=== PATIENT | female | born 1965 | race African-American/Black ===

== ENCOUNTER 2018-10-29 09:35 | Inpatient (IN) | payer SELFPAY ==
[~2018-10-29] VITALS: Ht 170.2 cm; Wt 79.8 kg
[2018-10-29 09:45] VITALS: BP 151/94
--- NOTE | 2018-10-29 09:46 | NUR ---
Patient transferred to bed 2 via wheelchair. RN evaluating patient at bedside.
--- NOTE | 2018-10-29 10:13 | NUR ---
PT C/O OF COSTANT RUQ ABDOMINAL PAIN, 7/10 FOR ONE MONTH. BEING SEEN IN [facility] FOR THE SAME SX ON September, PRESCRIBED WITH META MUCIL, HYDROCODONE, TRAMADOL, OMEPRAZOLE, AND METOCLOPRAMIDE W/O ANY RELIEF. PT ALSO STATES OF HAVING NAUSEA AND CONSTIPATION. DENIES VOMITING. LBM WAS IN THE MORNING OF TODAY. VSS; PATIENT POSITIONED FOR COMFORT; HOB ELEVATED; BEDRAILS UP X1; BED DOWN. ER MD MADE AWARE OF PT STATUS.
--- NOTE | 2018-10-29 10:16 | NUR ---
Dr. Jacques evaluating patient at bedside.
[2018-10-29] MEDS ORDERED: NACL 0.9% 1,000 ML IV SCH (10:35)
[2018-10-29] MEDS ORDERED: KETOROLAC 30 MG/ML VIAL IVP ONE (10:35)
[2018-10-29] MEDS ORDERED: ONDANSETRON 4 MG/2 ML VIAL IVP ONE (10:35)
--- NOTE | 2018-10-29 11:23 | NUR ---
US tech at bedside for exam.
--- NOTE | 2018-10-29 12:02 | NUR ---
PT STATES OF STILL HAVING ABDOMINAL PAIN AND NAUSEA. DR. ROLAND NOTIFIED.
[2018-10-29 12:46] LABS: APPEARANCE,URINE CLEAR (CLEAR); BASOPHILS % (AUTO) 0.2 % (0.0-2.0); BILIRUBIN,URINE 1+ (NEGATIVE); BLOOD, URINE NEGATIVE (NEGATIVE); COLOR,URINE YELLOW (YELLOW); HEMATOCRIT 45.2 % (36-48); HEMOGLOBIN 14.8 g/dL (12.0-16.0); LEUKOCYTE ESTERASE ,URINE NEGATIVE (NEGATIVE); LYMPHOCYTES # (AUTO) 0.5 K/uL (2.5-16.5); MEAN CORPUSCULAR HEMOGLOBIN 29 pg (27-31); MEAN CORPUSCULAR HGB CONC 33 g/dL (33-37); MEAN CORPUSCULAR VOLUME 88.7 fL (80-94); MONOCYTES # (AUTO) 0.2 K/uL (0.8-1.0); MONOCYTES % (AUTO) 2.1 % (1.7-9.3); NEUTROPHILS # (AUTO) 9.1 K/uL (1.8-7.7); NITRITE, URINE NEGATIVE (NEGATIVE); PLATELET COUNT (AUTO) 133 K/uL (140-450); RED CELL DISTRIBUTION WIDTH 13.1 % (11.6-13.7); UGLUCOSE TRACE (NEGATIVE); WHITE BLOOD COUNT (AUTO) 9.9 K/uL (4.8-10.8)
[2018-10-29] MEDS ORDERED: MORPHINE SULFATE 4 MG/ML SYR IVP ONE (12:50)
[2018-10-29] MEDS ORDERED: PROMETHAZINE 25 MG/ML VIAL IVP ONE (12:50)
[2018-10-29 12:52] LABS: RBC,URINE NONE SEEN /HPF (0-5); WBC,URINE 0-5 /HPF (0-5)
--- NOTE | 2018-10-29 13:02 | NUR ---
PT IS RESTING IN BED WITH EYES CLOSED. VSS.
[2018-10-29 13:03] LABS: ANION GAP 13.9 (8-16); CARBON DIOXIDE 26.3 mmol/L (21-32); CREATININE 0.8 mg/dL (0.6-1.3); POTASSIUM 4.2 mmol/L (3.5-5.1)
[2018-10-29 13:04] LABS: ALBUMIN 3.9 g/dL (3.4-5.0); TOTAL BILIRUBIN 0.6 mg/dL (0.0-1.0)
[2018-10-29 13:14] LABS: LYMPHOCYTES % (AUTO) 5.3 % (20.5-51.1); NEUTROPHILS % (AUTO) 92.4 % (42.2-75.2)
[2018-10-29] MEDS ORDERED: ACETAMINOPHEN 325 MG TAB PO PRN (14:05)
--- NOTE | 2018-10-29 14:10 | NUR ---
[facility] IS AT BEDSIDE AND TAKING PT TO [facility] FOR CT SCAN. REPORT GIVEN TO [facility] AND NOTIFIED THEM THAT PT IS ALLERGIC TO IODINE; PT IS GOING TO DO CT SCAN W/ ORAL CONTRAST.
--- NOTE | 2018-10-29 14:19 | NUR ---
Patient taken to [facility] ED for CT scan.
--- NOTE | 2018-10-29 16:17 | NUR ---
Patient returned from [facility], transferred to bed 2. RN re-evaluating patient at bedside.
--- NOTE | 2018-10-29 16:20 | NUR ---
PATIENT STATES PAIN OF 6/10 AT THIS TIME; VSS; PATIENT POSITIONED FOR COMFORT; HOB ELEVATED; BEDRAILS UP X2; BED DOWN. ER MD MADE AWARE OF PT STATUS.
[2018-10-29] MEDS ORDERED: TRAM50TA1 PO (16:36)
[2018-10-29] MEDS ORDERED: METO-485 PO (16:36)
[2018-10-29] MEDS ORDERED: OMEP20TC12 PO (16:36)
[2018-10-29] MEDS ORDERED: HYDR-5122 PO (16:36)
[2018-10-29 16:48] LABS: PROTHROMBIN TIME 9.5 secs (10.8-13.4)
[2018-10-29 16:56] LABS: BARBITURATE, URINE NEG. ng/ml (NEG <=200); BENZODIAZEPINE, URINE NEG. ng/mL (NEG <=200); CANNABINOID, URINE NEG. ng/mL (NEG <=50); COCAINE, URINE NEG. ng/mL (NEG <=300); OPIATE, URINE NEG. ng/mL (NEG <=2000); PHENCYCLIDINE SCREEN,URINE NEG. ng/mL (NEG <=25)
[2018-10-29 17:08] LABS: MAGNESIUM 1.8 mg/dL (1.8-2.4); PHOSPHORUS 3.5 mg/dL (2.5-4.9); THYROID STIMULATING HORMONE 0.65 uIU/mL (0.34-3.74)
[2018-10-29 17:20] VITALS: BP 149/76
--- NOTE | 2018-10-29 17:20 | NUR ---
Patient will be admitted to care of ABDOMINAL PAIN, NAUSEA, AND VOMITING. Admited to MED/SURG. Will go to room 106B. Belongings list completed. Report to NICOL Wilkerson.
--- NOTE | 2018-10-29 17:20 | NUR ---
PATIENT ARRIVED ON MST UNIT VIA WHEELCHAIR. NO DISTRESS NOTED. ABD PAIN WITHIN TOLERABLE AT THIS TIME. AAOX4, CALM, COOPERATIVE, SKIN COLOR APPROPRIATE TO ETHNICITY, WARM TO TOUCH. SKIN INTACT. IV SITE INTACT, PATENT, ON SALINE LOCK. ABDOMEN SOFT. RESPIRATIONS EVEN, UNLABORED, ON ROOM AIR. ORIENTED PATIENT TO ROOM AND CALL LIGHT. REVIEWED PLAN OF CARE WITH PATIENT. PATIENT VERBALIZED UNDERSTANDING. SAFETY MEASURES IN PLACE, CALL LIGHT WITHIN REACH. WILL CONTINUE TO MONITOR.
[2018-10-29] MEDS: ONDANSETRON 4 MG/2 ML VIAL IM/IVP PRN (18:22)
[2018-10-29] MEDS: MORPHINE SULFATE 2 MG/ML SYR IVP PRN (18:23)
--- NOTE | 2018-10-29 18:30 | NUR ---
PATIENT COMPLAINS OF GENERALIZED ABD PAIN. MORPHINE GIVEN. ALSO COMPLAINS OF NAUSEA. ZOFRAN GIVEN PER MD ORDERS. WILL CONTINUE TO MONITOR.
[2018-10-29] MEDS: NACL 0.9% 1,000 ML IV SCH (18:31)
--- NOTE | 2018-10-29 19:30 | NUR ---
GAVE REPORT TO COFFEE SHOP MANAGER NURSE FOR CONTINUITY OF CARE. PATIENT IN STABLE CONDITION.
--- NOTE | 2018-10-29 19:30 | NUR ---
RECEIVED REPORT FROM KAYLEEN CAMARNEA DAYSHIFT NURSE AT BEDSIDE FOR CONTINUITY OF CARE, PT IN STABLE CONDITION.
[2018-10-29] MEDS ORDERED: MULTIVITAMIN-12 10 ML, THIAMINE 100 MG, MAGNESIUM SULFATE 50% 2,000 MG, FOLIC ACID 1 MG... IV ONE ×5 (19:37)
[2018-10-29] MEDS ORDERED: LORazepam 2 MG/ML VIAL IM/IVP PRN (19:40)
[2018-10-29] MEDS ORDERED: DEXTROSE 50% 50 ML SYR IVP PRN (19:40)
[2018-10-29] MEDS ORDERED: INSULIN LISPRO SLIDING SCALE 100 UNITS/ML VIAL SUBQ PRN (19:40)
[2018-10-29 20:00] VITALS: BP 152/91
--- NOTE | 2018-10-29 20:00 | NUR ---
PT SITTING UP IN BED APPEARS ANXIOUS AND HAS C/O OF 5/10 ABDOMINAL PAIN. V/S FOLLOWS T 98.5 P 78 R 18 B/P 152/91 02 96% ON ROOM AIR. WILL MEDICATE FOR PAIN AND ANXIETY.
[2018-10-29] MEDS ORDERED: DICYCLOMINE HCL LIQUID 10 MG/5 ML UDC PO SCH (20:15)
[2018-10-29] MEDS ORDERED: ALUMINUM HYD/MAG/SIMETHICONE 30 ML UDC PO SCH (20:15)
[2018-10-29] MEDS ORDERED: LIDOCAINE VISCOUS 2% 20 ML UDC PO SCH (20:15)
[2018-10-29] MEDS: HYDROcodone/APAP 5/325 MG 1 TAB TAB PO PRN (20:20)
[2018-10-29] MEDS: LORazepam 2 MG/ML VIAL IM/IVP PRN (20:21)
[2018-10-29] MEDS ORDERED: PANTOPRAZOLE 40 MG INJ VIAL IVP SCH (20:30)
--- NOTE | 2018-10-29 20:30 | NUR ---
PT GIVEN PO/PRN NORCO FOR MODERATE PAIN WELL IVP ATIVAN 1MG FOR ANXIETY. IV SITE 20 GUAGE INTACT AND FLUSHED PATENT, PT CONTINUES ON NS AT 60MLS/HR. WILL MONITOR FOR EFFECT OF PRN MEDICATIONS.
[2018-10-29] MEDS: NICOTINE TRANSD SYS 21 MG/24 HR PATCH TD SCH (20:44)
[2018-10-29] MEDS: chlordiazePOXIDE 25 MG CAP PO SCH (20:54)
[2018-10-29] MEDS: BLOOD GLUCOSE MONITORING 1 DEV DEV FS SCH (21:00)
--- NOTE | 2018-10-29 21:30 | NUR ---
PT SEEMED MORE RELAXED AND RELIEF FELT FORM NORCO. ORDERED GI COCKTAIL, PROTONIX 40MG IVP WELL LIBRIUM AND NICOTINE PATCH. MEDICATION EDUCATION PROVIDED, PT SPILLED SOME OF THE GI COCKTAIL. MD LAUREN MADE AWARE. PT IS ALSO ON SEIZURE PRECAUTIONS WHICH ARE IN PLACE. WILL CONTINUE TO MONITOR PT FOR RELIEF OF GI SYMPTOMS.
--- NOTE | 2018-10-29 22:30 | NUR ---
PT SLEEPING SOUNDLY IN LOW BED WITH SIDE RAILS UP X2 AND RICHARD PARDO IN REACH. SEIZURE PRECAUTIONS IN PLACE AND IV SITE ON LEFT AC INTACT AND RUNNING NS AT 60MLS/HR.
[2018-10-30] VITALS: BP 101/64
--- NOTE | 2018-10-30 | NUR ---
PT IN BED SLEEPING SOUNDLY NO S/S OF PAIN OR DISTRESS NOTED. V/S FOLLOWS T 98.0 P 80 R 18 B/P 101/64 02 95% ON ROOM AIR. V/S FOLLOWS T 98.0 P 80 R 18 B/P 101/64 02 95% ON ROOM AIR. BED LOW AND IV INTACT AND RUNNING N/S AT 60MLS/HR.
--- NOTE | 2018-10-30 03:00 | NUR ---
PT IN BED ASLEEP IN LOW BED IV SITE RUNNING N/S ORDERED, NO S/S OF PAIN OR DISTRESS NOTED. BED LOW SIDE RAILS UP X2 AND CALL PARDO IN REACH.
[2018-10-30 05:43] LABS: BASOPHILS % (AUTO) 0.5 % (0.0-2.0); EOSINOPHILS # (AUTO) 0.1 K/uL (0-0.4); EOSINOPHILS % (AUTO) 0.7 % (0.0-4.0); HEMATOCRIT 40.6 % (36-48); HEMOGLOBIN 13.2 g/dL (12.0-16.0); LYMPHOCYTES # (AUTO) 1.6 K/uL (2.5-16.5); LYMPHOCYTES % (AUTO) 18.8 % (20.5-51.1); MEAN CORPUSCULAR HEMOGLOBIN 29 pg (27-31); MEAN CORPUSCULAR HGB CONC 33 g/dL (33-37); MEAN CORPUSCULAR VOLUME 88.8 fL (80-94); MONOCYTES # (AUTO) 0.6 K/uL (0.8-1.0); MONOCYTES % (AUTO) 6.8 % (1.7-9.3); NEUTROPHILS # (AUTO) 6.1 K/uL (1.8-7.7); NEUTROPHILS % (AUTO) 73.2 % (42.2-75.2); PLATELET COUNT (AUTO) 107 K/uL (140-450); RED BLOOD CELL COUNT(AUTO) 4.57 MIL/uL (4.20-5.40); RED CELL DISTRIBUTION WIDTH 13.1 % (11.6-13.7); WHITE BLOOD COUNT (AUTO) 8.4 K/uL (4.8-10.8)
[2018-10-30] MEDS: NACL 0.9% 1,000 ML IV SCH ×2 (05:55→23:25)
[2018-10-30 05:59] LABS: ANION GAP 9.7 (8-16); CARBON DIOXIDE 27.7 mmol/L (21-32); CREATININE 0.8 mg/dL (0.6-1.3); POTASSIUM 3.4 mmol/L (3.5-5.1)
--- NOTE | 2018-10-30 06:00 | NUR ---
PT IN BED AWAKE, NO S/S OF PAIN OR DISTRESS NOTED. PT STAND BY ASSISTANCE TO TOILET AND BACK TO BED, LAST FINGERSTICK IS 123. NO HUMALOG COVERAGE GIVEN. WILL ENDORSE CARE TO AM SHIFT.
[2018-10-30] MEDS: BLOOD GLUCOSE MONITORING 1 DEV DEV FS SCH ×4 (06:07→21:26)
[2018-10-30 06:08] LABS: CHOL/HDL RATIO 3.5 (1-4.5); MAGNESIUM 1.9 mg/dL (1.8-2.4); PHOSPHORUS 3.3 mg/dL (2.5-4.9)
--- NOTE | 2018-10-30 07:15 | NUR ---
RECEIVED BED SIDE REPORT FROM LICENSED SOCIAL WORKER RN DARYL. PT CURRENTLY SLEEPING, APPEARS IN NO DISTRESS. LEFT AC 20G RUNNING NS AT 60CC/HR. NO CURRENT CONSULTS ON PT'S CASE. SKIN INTACT. ON RA IN NO RESP DISTRESS.
--- NOTE | 2018-10-30 07:18 | NUR ---
POC ENDORSED AT BEDSIDE TO FRANCISCO AYALA RN, PT IN STABLE CONDITION.
--- NOTE | 2018-10-30 07:47 | NUR ---
VS STABLE. PT A/O X4 BUT PT STATES SHE FEELS WEAK AFTER GI COCKTAIL GIVEN BY PRODUCTION MATERIAL COORDINATOR RN DARYL. EDUCATED PT ON THE IMPORTANCE OF USING CALL LIGHT WHEN SHE NEEDS TO GET UP. PT VERBALIZED UNDERSTANDING. WILL CONTINUE TO MONITOR.
--- NOTE | 2018-10-30 08:11 | NUR ---
PATIENT HAS BEEN SCREENED AND CATEGORIZED MODERATE NUTRITION RISK. PATIENT WILL BE SEEN WITHIN 3-5 DAYS OF ADMISSION. 10/31/18-11/02/[address]
[2018-10-30] MEDS: chlordiazePOXIDE 25 MG CAP PO SCH ×3 (08:16→17:00)
[2018-10-30] MEDS: MULTIVITAMIN 1 TAB PO SCH (08:17)
[2018-10-30] MEDS: FOLIC ACID 1 MG TAB PO SCH (08:17)
[2018-10-30] MEDS: PANTOPRAZOLE 40 MG INJ VIAL IVP SCH (08:17)
[2018-10-30 09:35] VITALS: BP 123/82
--- NOTE | 2018-10-30 09:44 | NUR ---
GASTRIC RESIDUAL 5CC. HEARD SWOOSH. PT TOLERATING G TUBE FEEDING WELL. GAVE AM MEDS. HOB ELEVATED 30 DEGREES. PT CLEANED AND REPOSITIONED. APPLIED HYDROGUARD TO KAE AREA. BLANCHABLE REDNESS NOTED IN BILAT INNER THIGHS, NO OPEN WOUNDS. ALSO APPLIED TO SACRAL AREA.
--- NOTE | 2018-10-30 10:35 | NUR ---
RECEIVED A CALL FROM PHARMACY ABOUT BANANA BAG NOT BEING ADMINISTERED DUE LATE ORDER PLACED AND PHARMACY BEING CLOSED DUE TO IT BEING THE WEEKEND. ALSO THE BANANA BAG ORDER HAD NO RATE. NOTIFIED AND SHE SAID SHE WILL FIX THE ORDER. WILL WAIT FOR NEW ORDER.
--- NOTE | 2018-10-30 11:03 | NUR ---
PT REQUESTED TO HAVE HER IV CHANGED TO A DIFFERENT SITE. STARTED NEW IV ON LEFT HAND 20G, CURRENTLY RUNNING NS AT 60CC/HR. PT STILL DROWSY BUT AROUSABLE. A/O X4, RR 20, BED ALARM ON, AT BEDSIDE AND NOTIFIED HIM TO LET ME KNOW FOR HELP IN AMBULATING PT TO RESTROOM. CALL LIGHT WITHIN REACH.
--- NOTE | 2018-10-30 11:47 | NUR ---
SAW THAT LIBRIUM 50MG AND LIBRIUM 25MG ARE DUE AT 1300. CALLED TO CLARIFY IF SHE STILL WANTED ME TO GIVE BOTH MEDS. SHE STATED TO HOLD LIBRIUM 50MG AND DECIDE IF PT IS STILL DROWSY THEN TO HOLD THE 25MG DOSE. PT STILL DROWSY. WILL HOLD 25MG DOSE. GAVE 50MG IN AM.
[2018-10-30] MEDS: MULTIVITAMIN-12 10 ML, THIAMINE 100 MG, MAGNESIUM SULFATE 50% 2,000 MG, FOLIC ACID 1 MG... IV SCH ×10 (11:57→22:10)
[2018-10-30] MEDS: MORPHINE SULFATE 2 MG/ML SYR IVP PRN ×2 (13:18→17:59)
[2018-10-30] MEDS: ONDANSETRON 4 MG/2 ML VIAL IM/IVP PRN (13:19)
--- NOTE | 2018-10-30 13:27 | NUR ---
PT STATED SHE FEELS LIKE ASPIRATED ON FOOD. PT NOT SOB AND TALKING FINE. NOTIFIED IF CXR CAN BE ORDERED. ORDER PLACED. PT STATES SHE FEELS NAUSEOUS AND HAS 6/10 DULL ABDOMINAL PAIN. GAVE MORPHINE AND ZOFRAN PER MD ORDER.
[2018-10-30] MEDS ORDERED: METOCLOPRAMIDE 10 MG/2 ML INJ VIAL IVP PRN (14:30)
[2018-10-30] MEDS: HYDROcodone/APAP 5/325 MG 1 TAB TAB PO PRN (14:40)
--- NOTE | 2018-10-30 14:43 | NUR ---
PT STATES SHE STILL FEELS NAUSEOUS. NOTIFIED AND SHE ORDERED REGLAN. PT STILL COMPLAINS OF 7/10 ABDOMINAL PAIN, GAVE NORCO PER MD ORDER. WILL CONTINUE TO MONITOR.
--- NOTE | 2018-10-30 15:32 | NUR ---
PT STILL COMPLAINS OF NAUSEA AFTER GIVING REGLAN. PT STATES HER PAIN HAS REDUCED A LITTLE AFTER ADMINISTERING NORCO. WILL CONTINUE TO MONITOR.
[2018-10-30] MEDS ORDERED: POTASSIUM CHLORIDE 10 MEQ TABER PO SCH (16:00)
--- NOTE | 2018-10-30 16:39 | NUR ---
PT STATES SHE HAS 2/10 PAIN AND FEELS NAUSEOUS WHEN SHE IS WOKEN UP. PT STABLE.
[2018-10-30 16:41] VITALS: BP 147/83
[2018-10-30] MEDS ORDERED: ALBUTEROL SULFATE/IPRATROPIU 3 ML SOL IH PRN (16:55)
--- NOTE | 2018-10-30 17:09 | NUR ---
CALLED HOSPICE CARE SALES CONSULTANT PHARMACY TO VERIFY MEDICATIONS INCLUDING POTASSIUM CHLORIDE, HEPARIN, LIPITOR, LISINOPRIL AND METFORMIN. CALLED 4 TIMES AND LEFT A MESSAGE. PT COMPALINED OF CHEST PAIN AND TROUBLE BREATHING. NOTIFIED AND SHE ORDERED EKG AND BREATHING TX. PT STABLE, BANANA BAG STILL RUNNING, VS STABLE.
[2018-10-30] MEDS ORDERED: metFORMIN 500 MG TAB PO SCH (18:00)
[2018-10-30] MEDS ORDERED: ATORVASTATIN 20 MG TAB PO SCH (18:00)
[2018-10-30] MEDS ORDERED: LISINOPRIL 5 MG TAB PO SCH (18:00)
--- NOTE | 2018-10-30 18:22 | NUR ---
GAVE ZOFRAN AND MORPHINE PER MD ORDER. IS ORDERED. EDUCATED PT AND WHO IS BEDSIDE HOW TO USE IS. PT DID RETURN DEMONSTRATION AND HIT 500ML LEVEL. HELD LIBRIUM DUE TO PT STILL BEING DROWSY. NOTIFIED [employer]ACLE DISTRIBUTION CONSULTANT [employer].
[2018-10-30] MEDS: ALBUTEROL SULFATE/IPRATROPIU 3 ML SOL IH SCH (19:08)
--- NOTE | 2018-10-30 19:15 | NUR ---
ENDORSED PT TO HYDRAULIC JACK MECHANIC NICOL JONES. PT SLEEPING.
--- NOTE | 2018-10-30 19:16 | NUR ---
RECEIVED BEDSIDE REPORT FROM AM SHIFT RN HERMANN, FOR PT'S CONTINUITY OF CARE. PT IS LYING DOWN, APPEARS TO BE ASLEEP WITH NO SIGNS OF DISTRESS, FAMILY MEMBER AT BEDSIDE. PT IS ON ROOM AIR, HAS LEFT HAND 22G IV INFUSING WITH BANANA BAG. EXPLAINED TO FAMILY MEMBER THE RAIL LAYER ROUTINE, VERBALIZED UNDERSTANDING. BED IS ON LOW POSITION, SIDE RAILS ARE UP, AND CALL LIGHT WITHIN REACH. WILL MONITOR PT THROUGHOUT SHIFT.
[2018-10-30] MEDS: NICOTINE TRANSD SYS 21 MG/24 HR PATCH TD SCH (21:13)
[2018-10-30] MEDS: LORazepam 2 MG/ML VIAL IM/IVP PRN (21:14)
--- NOTE | 2018-10-30 21:15 | NUR ---
BLOOD GLUCOSE CHECKED AND CHARTED. PT STATED ANXIETY INCREASING AND NAUSEA. ADMINISTERED SCHEDULED TRANSDERMAL PATCH ORDERED, AND IV PUSH ANTI ANXIETY MEDICATION ORDERED. PT TOLERATED THEM WELL. HELD HEPARIN SUBQ PER MD, AWARE THAT PLT IS 107, APTT 24.9. PT AMBULATES. INSTRUCTED PT TO USE CALL LIGHT FOR HELP WITH AMBULATING TO THE BATHROOM. PT VERBALIZED UNDERSTANDING. WILL CONTINUE TO MONITOR PT.
--- NOTE | 2018-10-30 23:35 | NUR ---
VS CHECKED AND CHARTED. PT DENIES PAIN AT THIS TIME. STATES THAT SHE CANNOT SLEEP. MADE ENVIRONMENT COMFORTABLE, AND QUIET. WILL CONTINUE TO MONITOR PT.
[2018-10-31] VITALS: BP 148/80
[2018-10-31] MEDS: NACL 0.9% 1,000 ML IV SCH (00:55)
--- NOTE | 2018-10-31 01:00 | NUR ---
PATIENT COMPLAINED OF GENERALIZED BODY ACHE 5/10. PRN PAIN MED ADMINISTERED PER ORDER. WILL MONITOR FOR EFFECTIVENESS.
[2018-10-31] MEDS: HYDROcodone/APAP 5/325 MG 1 TAB TAB PO PRN (01:05)
--- NOTE | 2018-10-31 01:59 | NUR ---
CHECKED ON PATIENT. PATIENT SLEEPING RESPIRATION EVEN UNLABORED ON ROOM AIR. NO DISTRESS NOTED. WILL CONTINUE TO MONITOR.
[2018-10-31] MEDS: ALBUTEROL SULFATE/IPRATROPIU 3 ML SOL IH SCH (06:00)
[2018-10-31] MEDS: BLOOD GLUCOSE MONITORING 1 DEV DEV FS SCH (06:21)
--- NOTE | 2018-10-31 06:21 | NUR ---
BLOOD GLUCOSE CHECKED AND CHARTED. PT AWAKE, C/O INCREASE ANXIETY, AND NOT ABLE TO REST. PT DENIES PAIN AT THIS TIME.
[2018-10-31] MEDS ORDERED: LORazepam 2 MG/ML VIAL ONE (06:57)
--- NOTE | 2018-10-31 07:00 | NUR ---
PT LYING DOWN, APPEARS TO BE ASLEEP WITH NO SIGNS OF DISTRESS OR DISCOMFORT. IV PUSH ANTI ANXIETY MED NOT ADMIN. WILL ENDORSE TO AM SHIFT RN FOR CONTINUITY OF CARE.
--- NOTE | 2018-10-31 07:05 | NUR ---
RECEIVED ENDORSEMENT FROM SALES ADMINISTRATION SPECIALIST NURSE. PATIENT IS SLEEPING, AROUSABLE TO LIGHT SHAKING. PATIENT IS LETHARGIC, SAMI SPEAKING. RESPIRATIONS ARE EVEN AND UNLABORED ON ROOM AIR. NO COMPLAINS OF PAIN AT THIS TIME. LEFT HAND 22G IV INTACT, PATENT AND INFUSING IVF. PLAN OF CARE WAS REVIEWED WITH PATIENT, PATIENT REQUIRES REINFORCEMENT. SAFETY MEASURES IN PLACE, CALL LIGHT WITHIN REACH.
[2018-10-31 07:53] LABS: BASOPHILS % (AUTO) 0.2 % (0.0-2.0); EOSINOPHILS % (AUTO) 0.4 % (0.0-4.0); HEMATOCRIT 42.3 % (36-48); LYMPHOCYTES # (AUTO) 1.4 K/uL (2.5-16.5); LYMPHOCYTES % (AUTO) 13.9 % (20.5-51.1); MEAN CORPUSCULAR HEMOGLOBIN 30 pg (27-31); MEAN CORPUSCULAR HGB CONC 33 g/dL (33-37); MEAN CORPUSCULAR VOLUME 89.1 fL (80-94); MONOCYTES # (AUTO) 0.6 K/uL (0.8-1.0); MONOCYTES % (AUTO) 5.4 % (1.7-9.3); NEUTROPHILS # (AUTO) 8.3 K/uL (1.8-7.7); NEUTROPHILS % (AUTO) 80.1 % (42.2-75.2); PLATELET COUNT (AUTO) 121 K/uL (140-450); RED BLOOD CELL COUNT(AUTO) 4.74 MIL/uL (4.20-5.40); WHITE BLOOD COUNT (AUTO) 10.3 K/uL (4.8-10.8)
[2018-10-31 08:00] VITALS: BP 129/84
[2018-10-31] MEDS ORDERED: metFORMIN 500 MG TAB PO SCH (08:00)
[2018-10-31] MEDS ORDERED: ALBUTEROL SULFATE/IPRATROPIU 3 ML SOL IH SCH (08:10)
[2018-10-31] MEDS: MULTIVITAMIN-12 10 ML, THIAMINE 100 MG, MAGNESIUM SULFATE 50% 2,000 MG, FOLIC ACID 1 MG... IV SCH ×5 (08:20)
[2018-10-31] MEDS: FOLIC ACID 1 MG TAB PO SCH (08:56)
[2018-10-31] MEDS: PANTOPRAZOLE 40 MG INJ VIAL IVP SCH (08:56)
[2018-10-31] MEDS: MULTIVITAMIN 1 TAB PO SCH (08:57)
[2018-10-31] MEDS ORDERED: LISI-424 PO (08:57)
[2018-10-31] MEDS ORDERED: METF500T PO (08:57)
[2018-10-31] MEDS ORDERED: MULT-405 PO (08:57)
[2018-10-31] MEDS ORDERED: METO5SOL24 IVP (08:57)
[2018-10-31] MEDS ORDERED: ATOR20TA40 PO (08:57)
[2018-10-31] MEDS ORDERED: FOLI1TAB90 PO (08:57)
[2018-10-31] MEDS: chlordiazePOXIDE 25 MG CAP PO SCH (08:58)
[2018-10-31] MEDS ORDERED: MIRABULK PO (09:00)
[2018-10-31] MEDS ORDERED: DOCU-299 PO (09:00)
[2018-10-31] MEDS ORDERED: SENN-72 PO (09:00)
[2018-10-31] MEDS ORDERED: LISINOPRIL 5 MG TAB PO SCH (09:00)
[2018-10-31] MEDS ORDERED: ATORVASTATIN 20 MG TAB PO SCH (09:00)
--- NOTE | 2018-10-31 09:00 | NUR ---
HEPARIN NON ADMINISTERED DUE TO PLAT OF 121. HELD LIBRIUM DUE TO PATIENT LETHARGIC CONDITION. ADMINISTERED ALL OTHER SCHEDULED MEDICATIONS. PATIENT TOLERATED WELL, NO OTHER NEEDS AT THIS TIME. WILL CONTINUE TO MONITOR.
[2018-10-31] MEDS ORDERED: LIB25 PO ×2 (09:01)
[2018-10-31] MEDS ORDERED: GLUC-805 FS (09:30)
[2018-10-31 09:31] LABS: ANION GAP 13.5 (8-16); CARBON DIOXIDE 27.2 mmol/L (21-32); CREATININE 0.8 mg/dL (0.6-1.3); POTASSIUM 3.7 mmol/L (3.5-5.1)
[2018-10-31 09:32] LABS: MAGNESIUM 2.1 mg/dL (1.8-2.4)
--- NOTE | 2018-10-31 11:40 | NUR ---
PATIENT SLEEPING, VISIBLE RISE AND FALL OF CHEST. PRESENT AT BEDSIDE. NO OTHER NEEDS AT THIS TIME, WILL CONTINUE TO MONITOR.
--- NOTE | 2018-10-31 12:40 | NUR ---
DISCHARGE INSTRUCTIONS WERE GIVEN. ALL QUESTIONS AND CONCERNS ANSWERED. IV WAS REMOVED, CANNULA INTACT, WITH MINIMAL BLEEDING. ID BAND WAS REMOVED. PATIENT TO BE DISCHARGED HOME ACCOMPANIED BY .
--- NOTE | 2018-10-31 12:45 | NUR ---
PATIENT AMBULATED OFF UNIT WITH STEADY GAIT ACCOMPANIED BY . ALL BELONGINGS LEFT WITH PATIENT. PATIENT IS STABLE AT THIS TIME.
[2018-10-31] MEDS ORDERED: FAMO-90 PO (13:41)
== END 2018-10-31 12:40 | disposition home or self-care (01) | DRG 392 ==
LOC: MED 09:35 → MTU 14:09
PROVIDERS: ADMIT General Practice; ATTEND General Practice
DX: K21.9 Gastro-esophageal reflux disease without esophagitis (principal); E87.1 Hypo-osmolality and hyponatremia; J98.11 Atelectasis; Z88.5 Allergy status to narcotic agent; E11.9 Type 2 diabetes mellitus without complications; I25.2 Old myocardial infarction; Z83.3 Family history of diabetes mellitus; Z82.49 Family history of ischemic heart disease and other diseases of the circulatory system; F17.210 Nicotine dependence, cigarettes, uncomplicated; F10.10 Alcohol abuse, uncomplicated; Y90.9 Presence of alcohol in blood, level not specified; F19.10 Other psychoactive substance abuse, uncomplicated; E87.6 Hypokalemia; E78.5 Hyperlipidemia, unspecified
CPT/HCPCS: 36415; 36600; 71045; 74018; 76705; 80048; 80053; 80305; 81001; 82150; 82803; 82948; 83036; 83690; 83735; 83880; 84100; 84443; 84484; 85025; 85610; 85730; 87081; 93005; 94640; 96361; 96374; 96375; 99285; A9153; C9113; G0482; J1644; J1885; J2060; J2270; J2405; J2550; J2765; J3411; J3475; J3490; J7030; J7620; Q0092

== ENCOUNTER 2018-11-08 09:40 | Emergency (ER) | payer SELFPAY ==
[~2018-11-08] VITALS: Ht 172.7 cm; Wt 65.8 kg
[~2018-11-08 09:40] MED LIST: ATOR20TA40 PO; DOCU-299 PO; FAMO-90 PO; FOLI1TAB90 PO; GLUC-805 FS; LIB25 PO; LISI-424 PO; METF500T PO; METO-485 PO; METO5SOL24 IVP; MIRABULK PO; MULT-405 PO; OMEP20TC12 PO; SENN-72 PO
[2018-11-08 09:46] VITALS: BP 133/92
--- NOTE | 2018-11-08 09:46 | NUR ---
DEJA FROM CLINIC. C/O AB PAIN AND NAUSEA X TODAY. DENIES VOMITING OR DIARRHEA. BOWEL SOUNDS ACTIVE IN ALL 4 QUADRANTS. ACCU CHECK 140. WAS SEEN HERE A COUPLE DAYS AGO. PAIN 10/08. BED IS DOWN, LOCKED, BED RAIL X 1, ERMD TO SEE PT. PMH- DM
--- NOTE | 2018-11-08 09:48 | NUR ---
0937--PT [facility] TO ER BED 9
--- NOTE | 2018-11-08 10:00 | NUR ---
PATIENT LEFT WITHOUT BEING SEEN BY DR. RICH. NO FURTHER CARE PROVIDED FOR PATIENT.
== END 2018-11-08 10:00 | disposition left against medical advice (07) ==
LOC: MED 09:40
DX: R10.9 Unspecified abdominal pain (principal); R11.0 Nausea; Z53.21 Procedure and treatment not carried out due to patient leaving prior to being seen by health care provider; E11.9 Type 2 diabetes mellitus without complications

== ENCOUNTER 2018-11-08 18:48 | Emergency (ER) | payer SELFPAY ==
[~2018-11-08] VITALS: Ht 170.2 cm; Wt 79.8 kg
--- NOTE | 2018-11-08 19:14 | NUR ---
PT BIB AMBULANCE TO ER BED 6
--- NOTE | 2018-11-08 19:15 | NUR ---
PT BIBA C/O ABDOMINAL PAIN. PT WAS HERE EARLIER TODAY FOR ABDOMINAL PAIN BUT LEFT AMA. PT CAME BACK BECAUSE ABDOMINAL PAIN RETURNED. ACCORDING TO PT SHE HAS BEEN IN AND OUT OF THE HOSPITAL FOR THE LAST MONTH WITHOUT A DX. PAIN LEVEL IS IN RUQ, DULL PAIN. PAIN LEVEL 10/10. PT HAS NAUSEA. ALLERGIES: IODINE. MED HX: DM, HTN, AND HIGH CHOLESTEROL. SAFETY MEASURES IN PLACE. WAITING FOR ERMD TO EVALUATE PT.
--- NOTE | 2018-11-08 19:15 | NUR ---
Note elvisone in EDM - 11/08/18 at 2019 by [email or web address] PT BIBA C/O ABDOMINAL PAIN. PT WAS HERE EARLIER TODAY FOR ABDOMINAL PAIN BUT LEFT AMA. PT CAME BACK BECAUSE ABDOMINAL PAIN RETURNED. ACCORDING TO PT SHE HAS BEEN IN AND OUT OF THE HOSPITAL FOR THE LAST MONTH WITHOUT A DX. PT HAS N/V. GENERALIZED ABDOMINAL PAIN, PAIN LEVEL 12/08. ALLERGIES: IODINE. MED HX: DM, HTN, AND HIGH CHOLESTEROL. SAFETY MEASURES IN PLACE. WAITING FOR ERMD TO EVALUATE PT.
[2018-11-08 19:27] VITALS: BP 159/78
--- NOTE | 2018-11-08 20:01 | NUR ---
ULTRASOUND AT BEDSIDE
--- NOTE | 2018-11-08 20:25 | NUR ---
PT C/O PAIN 12/08 TO RUQ. ERMD NOTIFIED
[2018-11-08 20:26] LABS: LYMPHOCYTES # (AUTO) 0.5 K/uL (2.5-16.5); MONOCYTES # (AUTO) 0.2 K/uL (0.8-1.0)
[2018-11-08] MEDS ORDERED: KETOROLAC 60 MG/2 ML VIAL IM ONE (20:30)
[2018-11-08 20:34] LABS: ALBUMIN 3.7 g/dL (3.4-5.0); ANION GAP 15.4 (8-16); BASOPHILS % (AUTO) 0.1 % (0.0-2.0); CARBON DIOXIDE 26.9 mmol/L (21-32); CREATININE 0.8 mg/dL (0.6-1.3); HEMATOCRIT 40.4 % (36-48); HEMOGLOBIN 13.2 g/dL (12.0-16.0); LYMPHOCYTES % (AUTO) 4.8 % (20.5-51.1); MEAN CORPUSCULAR HEMOGLOBIN 29 pg (27-31); MEAN CORPUSCULAR HGB CONC 33 g/dL (33-37); MEAN CORPUSCULAR VOLUME 89.6 fL (80-94); MONOCYTES % (AUTO) 1.9 % (1.7-9.3); NEUTROPHILS # (AUTO) 9.4 K/uL (1.8-7.7); NEUTROPHILS % (AUTO) 93.2 % (42.2-75.2); PLATELET COUNT (AUTO) 127 K/uL (140-450); POTASSIUM 4.3 mmol/L (3.5-5.1); RED CELL DISTRIBUTION WIDTH 13.3 % (11.6-13.7); TOTAL BILIRUBIN 0.4 mg/dL (0.0-1.0); WHITE BLOOD COUNT (AUTO) 10.1 K/uL (4.8-10.8)
--- NOTE | 2018-11-08 21:34 | NUR ---
Dr. Maciel examining patient.
[2018-11-08] MEDS ORDERED: fentaNYL 0.05 MG/ML VIAL IVP ONE (21:40)
--- NOTE | 2018-11-08 22:22 | NUR ---
PT TAKEN TO CT
--- NOTE | 2018-11-08 22:36 | NUR ---
PT RETURN FROM CT
--- NOTE | 2018-11-08 22:53 | NUR ---
PT STATES SHE HAS NAUSEA. ERMD MADE AWARE
[2018-11-08] MEDS ORDERED: ONDANSETRON 4 MG/2 ML VIAL IVP ONE (22:55)
--- NOTE | 2018-11-08 23:50 | NUR ---
PT ASSISTED TO RESTROOM VIA WHEEL CHAIR
--- NOTE | 2018-11-09 00:35 | NUR ---
Patient discharged with v/s stable. Written and verbal after care instructions given and explained. Patient verbalized understanding. Ambulatory to car. All questions addressed prior to discharge. Advised to follow up with PMD.
[2018-11-09 00:39] VITALS: BP 152/90
== END 2018-11-09 00:34 | disposition home or self-care (01) ==
LOC: MED 18:48
DX: R10.13 Epigastric pain (principal); F17.210 Nicotine dependence, cigarettes, uncomplicated; E11.9 Type 2 diabetes mellitus without complications; I10 Essential (primary) hypertension; E78.5 Hyperlipidemia, unspecified; Z98.890 Other specified postprocedural states; Z79.899 Other long term (current) drug therapy; Z88.8 Allergy status to other drugs, medicaments and biological substances
CPT/HCPCS: 36415; 74176; 76705; 80053; 83690; 85025; 96372; 96374; 96375; 99284; J1885; J2405; J3010; Q0092